=== PATIENT | male | born 1995 | race African-American/Black ===

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

== ENCOUNTER 2017-01-17 00:30 | Emergency (ER) | payer MEDICAID ==
[~2017-01-17] VITALS: Ht 185.4 cm; Wt 68.0 kg
[~2017-01-17 00:30] MED LIST changes: -PROM6.25
[2017-01-17 01:00] VITALS: BP_SYST 116
--- NOTE | 2017-01-17 01:00 | NUR ---
Patient to ER bed 1 for evaluation. Side rails up. Report given to NELSY Recio.
--- NOTE | 2017-01-17 01:05 | NUR ---
Pt states having abdominal pain "for approximately 2-3 days", states pain scale 8/10 +nausea, +vomiting, +diarrhea prior to ER visit. Abdomen round, soft to palpation. Pt states pain is generalized in all 4 quadrants. Pt denies any other complaints.
--- NOTE | 2017-01-17 01:05 | NUR ---
ER Dr. Gauthier at bedside examining patient.
[2017-01-17] MEDS ORDERED: NACL 0.9% 1,000 ML IV ONE (01:47)
[2017-01-17] MEDS ORDERED: ONDANSETRON HCL 4 MG/2 ML VIAL IVP ONE (02:00)
[2017-01-17] MEDS ORDERED: MORPHINE 2 MG/ML INJ. SYRINGE IVP ONE (02:00)
--- NOTE | 2017-01-17 02:15 | NUR ---
# 20 gauge angiocath placed to R forearm. Use of asceptic technique. Blood return noted. Blood for lab drawn from site. Flushed with 10 cc of normal saline. No evidence of infiltration noted. Patient tolerated well.
[2017-01-17 02:21] LABS: BASOPHILS % (AUTO) 0.2 % (0.0-2.0); EOSINOPHILS # (AUTO) 0.2 K/uL (0.0-0.4); EOSINOPHILS % (AUTO) 1.9 % (0.0-4.0); HEMATOCRIT 39.5 % (36-54); HEMOGLOBIN 12.8 g/dL (14.0-18.0); LYMPHOCYTES # (AUTO) 0.5 K/uL (1.0-5.5); LYMPHOCYTES % (AUTO) 5.3 % (20.5-51.5); MEAN CORPUSCULAR HEMOGLOBIN 26 pg (27-31); MEAN CORPUSCULAR HGB CONC 32 % (32-36); MEAN CORPUSCULAR VOLUME 81 fL (79.0-98.0); MONOCYTES # (AUTO) 0.7 K/uL (0.0-1.0); MONOCYTES % (AUTO) 7.5 % (1.7-9.3); NEUTROPHILS # (AUTO) 8.5 K/uL (1.8-7.7); NEUTROPHILS % (AUTO) 85.1 % (40.0-70.0); PLATELET COUNT (AUTO) 170 K/uL (130-430); RED BLOOD CELL COUNT(AUTO) 4.86 MIL/uL (4.2-6.2); RED CELL DISTRIBUTION WIDTH 14.7 % (9.0-15.0); WHITE BLOOD COUNT (AUTO) 9.9 K/uL (4.5-11.0)
[2017-01-17 02:32] LABS: CALCIUM 8.8 mg/dL (8.4-11.0); CREATININE 1.12 mg/dL (0.55-1.30); POTASSIUM 3.6 mmol/L (3.5-5.1)
[2017-01-17 02:37] LABS: ALBUMIN 4.3 g/dL (3.4-4.8); TOTAL BILIRUBIN 0.6 mg/dL (0.0-1.0); TOTAL PROTEIN, SERUM 8.2 g/dL (6.4-8.3)
--- NOTE | 2017-01-17 02:45 | NUR ---
No adverse effects to medications noted. Will continue to monitor pt.
--- NOTE | 2017-01-17 03:00 | NUR ---
Pt stable, no signs of distress noted. Will continue to monitor pt.
[2017-01-17 03:30] VITALS: BP_SYST 119
--- NOTE | 2017-01-17 03:30 | NUR ---
Patient given written and verbal discharge instructions and verbalizes understanding. ER MD discussed with patient the results and treatment provided. Patient in stable condition. ID arm band removed. IV catheter removed intact and dressing applied, no active bleeding. Patient educated on pain management and to follow up with PMD. Pain Scale 0/10. Opportunity for questions provided and answered.
== END 2017-01-17 03:30 | disposition home or self-care (01) ==
LOC: SED 00:30
DX: R10.9 Unspecified abdominal pain (principal); R19.7 Diarrhea, unspecified; R11.2 Nausea with vomiting, unspecified
CPT/HCPCS: 36415; 80053; 85025; 96361; 96374; 96375; 99284; J2270; J2405; J7030

== ENCOUNTER 2017-05-26 09:01 | Emergency (ER) | payer MEDICAID ==
[~2017-05-26] VITALS: Ht 185.4 cm; Wt 72.6 kg
[2017-05-26 09:08] VITALS: BP_SYST 125
== END 2017-05-26 09:32 | disposition home or self-care (01) ==
LOC: SED 09:01
DX: S01.81XD Laceration without foreign body of other part of head, subsequent encounter (principal); J45.909 Unspecified asthma, uncomplicated; G43.909 Migraine, unspecified, not intractable, without status migrainosus; R03.0 Elevated blood-pressure reading, without diagnosis of hypertension; X58.XXXD Exposure to other specified factors, subsequent encounter
CPT/HCPCS: 99281

== ENCOUNTER 2018-05-01 11:43 | Emergency (ER) | payer MEDICAID ==
[~2018-05-01] VITALS: Ht 182.9 cm; Wt 68.0 kg
[2018-05-01 12:04] VITALS: BP_SYST 120
== END 2018-05-01 13:06 | disposition home or self-care (01) ==
LOC: SED 11:43
DX: S39.011A Strain of muscle, fascia and tendon of abdomen, initial encounter (principal); J45.909 Unspecified asthma, uncomplicated; G43.909 Migraine, unspecified, not intractable, without status migrainosus; R03.0 Elevated blood-pressure reading, without diagnosis of hypertension; X50.0XXA Overexertion from strenuous movement or load, initial encounter; Y93.89 Activity, other specified; Y92.89 Other specified places as the place of occurrence of the external cause; Y99.8 Other external cause status
CPT/HCPCS: 99283

== ENCOUNTER 2018-07-08 00:50 | Emergency (ER) | payer MEDICAID ==
[~2018-07-08] VITALS: Ht 182.9 cm; Wt 72.6 kg
[2018-07-08 01:04] VITALS: BP_SYST 124
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
--- NOTE | 2018-07-08 01:20 | NUR ---
Dr. Delacruz at bedside.
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
--- NOTE | 2018-07-08 02:16 | NUR ---
Called an alternate number to P: [phone], spoke with Yany. Pt states that he doesn't want to wait for [facility] to arrive to hospital so he opted to go home. Per Yany, P is to follow up with pt at pt.'s residence and to call [facility] upon his arrival home. Pt provides his [address] and phone number[address] [place] [address]; [phone].
[2018-07-08 02:32] VITALS: BP_SYST 120
--- NOTE | 2018-07-08 02:32 | NUR ---
Patient given written and verbal discharge instructions and verbalizes understanding. ER MD discussed with patient the results and treatment provided. Patient in stable condition. ID arm band removed. Rx of [place], Motrin given. Patient educated on pain management and to follow up with PMD. Pain Scale 3/10. Opportunity for questions provided and answered. Medication side effect fact sheet provided.
== END 2018-07-08 02:32 | disposition home or self-care (01) ==
LOC: SED 00:50
DX: S13.4XXA Sprain of ligaments of cervical spine, initial encounter (principal); J45.909 Unspecified asthma, uncomplicated; G43.909 Migraine, unspecified, not intractable, without status migrainosus; R03.0 Elevated blood-pressure reading, without diagnosis of hypertension; V43.52XA Car driver injured in collision with other type car in traffic accident, initial encounter; Y93.89 Activity, other specified; Y92.410 Unspecified street and highway as the place of occurrence of the external cause; Y99.8 Other external cause status
CPT/HCPCS: 99281

== ENCOUNTER 2018-09-21 16:58 | Emergency (ER) | payer MEDICAID ==
[~2018-09-21] VITALS: Ht 182.9 cm; Wt 68.0 kg
[2018-09-21 17:00] VITALS: BP_SYST 133
[2018-09-21] MEDS ORDERED: IPRATROPIUM/ALBUTEROL SULFATE 3 ML AMPUL.NEB (DUONEB) INH ONE (17:15)
[2018-09-21 17:36] LABS: STREPTOCOCCUS A SCREEN (RAPID) NEGATIVE (NEGATIVE)
[2018-09-21 17:45] LABS: INFLUENZA A&B ANTIGEN SCREEN NEGATIVE FOR A & B (NEGATIVE)
[2018-09-21 18:30] VITALS: BP_SYST 126
== END 2018-09-21 18:30 | disposition home or self-care (01) ==
LOC: SED 16:58
DX: J45.901 Unspecified asthma with (acute) exacerbation (principal); J06.9 Acute upper respiratory infection, unspecified; F12.90 Cannabis use, unspecified, uncomplicated; R03.0 Elevated blood-pressure reading, without diagnosis of hypertension; G43.909 Migraine, unspecified, not intractable, without status migrainosus
CPT/HCPCS: 71045; 86403; 86710; 87081; 94640; 99284; J7620; 36415

== ENCOUNTER 2018-11-18 18:44 | Emergency (ER) | payer MEDICAID ==
[~2018-11-18] VITALS: Ht 182.9 cm; Wt 70.3 kg
[2018-11-18 18:53] VITALS: BP_SYST 123
--- NOTE | 2018-11-18 21:25 | NUR ---
CALLED IN FOR EVALUATION, NO ANSWER
--- NOTE | 2018-11-18 21:25 | NUR ---
Patient left without being seen. No further treatment provided. ER MD aware
== END 2018-11-18 21:25 | disposition left against medical advice (07) ==
LOC: SED 18:44
DX: H92.01 Otalgia, right ear (principal); R05 Cough; Z53.21 Procedure and treatment not carried out due to patient leaving prior to being seen by health care provider

== ENCOUNTER 2018-11-19 13:26 | Emergency (ER) | payer MEDICAID ==
[~2018-11-19] VITALS: Ht 182.9 cm; Wt 68.0 kg
[2018-11-19 13:41] VITALS: BP_SYST 124
== END 2018-11-19 19:00 | disposition home or self-care (01) ==
LOC: SED 13:26
DX: H60.91 Unspecified otitis externa, right ear (principal); R03.0 Elevated blood-pressure reading, without diagnosis of hypertension; G43.909 Migraine, unspecified, not intractable, without status migrainosus; J45.909 Unspecified asthma, uncomplicated
CPT/HCPCS: 99283

== ENCOUNTER 2018-12-21 10:14 | Emergency (ER) | payer MEDICAID ==
[~2018-12-21] VITALS: Ht 188 cm; Wt 68.0 kg
[2018-12-21 10:14] VITALS: BP_SYST 143
--- NOTE | 2018-12-21 10:14 | NUR ---
TRIAGED AT BEDSIDE PLACED IN BED 4. LASD AT BEDSIDE PT IN CUSTODY
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
--- NOTE | 2018-12-21 10:25 | NUR ---
ER at bedside examining patient.
[2018-12-21 11:20] VITALS: BP_SYST 143
--- NOTE | 2018-12-21 11:20 | NUR ---
Patient given written and verbal discharge instructions and verbalizes understanding. ER MD discussed with patient the results and treatment provided. Patient in stable condition. ID arm band removed. No Rx given. Patient educated on pain management and to follow up with PMD. Pain Scale 2/10 tolerable for patient. Opportunity for questions provided and answered. Medication side effect fact sheet provided.
== END 2018-12-21 11:20 ==
LOC: SED 10:14
DX: F41.9 Anxiety disorder, unspecified (principal); J45.909 Unspecified asthma, uncomplicated; G43.909 Migraine, unspecified, not intractable, without status migrainosus
CPT/HCPCS: 99284

== ENCOUNTER 2020-10-25 16:42 | Emergency (ER) | payer MEDICAID ==
[~2020-10-25] VITALS: Ht 185.4 cm; Wt 90.7 kg
[2020-10-25 16:48] VITALS: BP_SYST 114
[2020-10-25] MEDS ORDERED: MORPHINE 4 MG INJ. 4 MG/ML VIAL IVP ONE (17:00)
[2020-10-25] MEDS ORDERED: DIPHENHYDRAMINE INJ 50 MG/ML VIAL IVP ONE (17:00)
[2020-10-25] MEDS ORDERED: NACL 0.9% 1,000 ML IV ONE (17:00)
[2020-10-25] MEDS ORDERED: ETOMIDATE 20 MG/ 10 ML VIAL (AMIDATE) IVP ONE (17:00)
[2020-10-25 19:17] VITALS: BP_SYST 141
== END 2020-10-25 19:17 | disposition home or self-care (01) ==
LOC: SED 16:42
DX: S43.004A Unspecified dislocation of right shoulder joint, initial encounter (principal); J45.909 Unspecified asthma, uncomplicated; V00.131A Fall from skateboard, initial encounter; Y93.51 Activity, roller skating (inline) and skateboarding; Y92.89 Other specified places as the place of occurrence of the external cause; Y99.8 Other external cause status
CPT/HCPCS: 23650; 73020; 96360; 99152; 99285; J1200; J2270; J3490; J7030